=== PATIENT | male | born 1970 | race Caucasian/White ===

== ENCOUNTER → 2020-10-27 08:15 | Outpatient (CLI) | payer OTHER, SELFPAY ==
--- NOTE | ~2020-10-27 | XR_ITS ---
EXAMINATION: XR lumbar spine 2-3V EXAM DATE: 10/27/2020 08:40 INDICATION: Intervertebral disc disorders with radiculopathy, lumbar reg. TECHNIQUE: Lumber spine frontal, lateral, lateral L5-S1 projections for interpretation. Comparison is made to prior examination from 01/07/2011. FINDINGS: There is moderate disc disease L4-S1. Mild to moderate L1-L3 and mild at L3-4. There is mi ld upper lumbar, mild to moderate lower lumbar facet arthropathy. The vertebral bodies are aligned in the AP dimension. Moderate-sized bridging endplate osteophytes on the right side of L1-2. No spondyl olysis. Probable small amount of neural foraminal stenosis at L5-S1. Paraspinal soft tissue is unrema rkable. Compared to 2010, noticeable interval progression in spondylosis described above. IMPRESSION: 1. Mild to moderate lumbar spondylosis. 2. Evidence of L5-S1 neural foraminal stenosis. Reviewed, dictated and finalized at location B. CLERK
== END ==
DX: M51.16 Intervertebral disc disorders with radiculopathy, lumbar region (principal); M47.896 Other spondylosis, lumbar region
CPT/HCPCS: 72100

== ENCOUNTER 2022-04-02 15:10 | Outpatient (CLI) | payer OTHER, SELFPAY ==
--- NOTE | ~2022-04-02 | XR_ITS ---
EXAMINATION: XR wrist LT min 3V DATE: 04/02/2022 15:30 INDICATION: Left wrist pain. TECHNIQUE: 4 views of left wrist were obtained. COMPARISON: None. FINDINGS: Bone alignment is normal. No fracture. There is mild osteoarthritis of triscaphe joint and first carpometacarpal joint. There is moderate to severe osteoarthritis of scapholunate joint. IMPRESSION: 1. Polyarticular osteoarthritis. Reviewed, dictated and finalized at location A.
== END 2022-04-02 15:11 | disposition home or self-care (01) ==
PROVIDERS: PCP Physician Assistant; Visit Provider Physician Assistant
DX: M19.032 Primary osteoarthritis, left wrist (principal)
CPT/HCPCS: 73110

== ENCOUNTER 2023-02-04 10:29 | Emergency (ER) | payer OTHER, SELFPAY ==
[2023-02-04 10:45] VITALS: BP 146/105; PULSE 75; RESP 16; TEMP 37.1; O2SAT 100
--- NOTE | 2023-02-04 11:17 | ED.SKABFB ---
HPI - Skin/Abscess/Foreign Bdy General Chief complaint: Skin/Abscess/Foreign Body Stated complaint: Wound Check Time Seen by Provider: 02/04/23 11:17 Source: patient Mode of arrival: ambulatory Limitations: no limitations History of Present Illness HPI narrative: 52-year-old male presented for complaint of wound to the left hand index finger after injury 2 weeks ago. He states he cut himself with a box knife. States the site was flapped, and has been healing, but continues to have some swelling and site drains clear and yellow drainage. He has been applying Neosporin at night. Endorses some limited range of motion when making a fist due to the swelling. Site is tender only when touched. He denies redness, streaking, nausea, vomiting, fevers or chills. He did not seek treatment immediately following the injury. Related Data Allergies Allergy/AdvReac Type Severity Reaction Status Date / Time Penicillins Allergy Mild Swelling Verified 05/02/22 09:18 propoxyphene Allergy Unknown Facial Verified 05/02/22 09:18 swelling Bumble Bee Allergy Unknown Unknown Uncoded 05/02/22 09:18 Review of Systems Review of Systems: CONSTITUTIONAL: Denies body aches, fever, chills, or sweats. EYES: Denies visual changes, redness, or discharge. ENT: Denies rhinorrhea, congestion CARDIOVASCULAR: Denies chest pain, palpitations, or edema. RESPIRATORY: Denies cough or dyspnea. GASTROINTESTINAL: Denies abdominal pain, nausea, vomiting, or diarrhea. SKIN: Laceration to left index finger MUSCULOSKELETAL: Denies back pain, joint pain, or myalgia. NEUROLOGIC: Denies headache, numbness, tingling, or weakness. [facility] Past Medical History Medical History Alcohol use disorder Arthritis of wrist, left, degenerative Boil (~04/23/19) Flu vaccine need History of basal cell cancer Intermittent low back pain chronic Mild acid reflux Orthostatic hypotension Pneumonia (~01/21/13) Surgical History Surgical History History of back surgery (~2004) L5-S1 Family History Family History Father Diabetes mellitus Patient's father is Family history of cardiovascular disease Acute myocardial infarction Mother Patient's mother is Carcinoma of colon Grandparent Family history of Alzheimer's disease Social History Social History Smoking status: Former smoker Tobacco type: cigarettes Second hand tobacco smoke exposure: No Smoking end date: 08/19/97 Alcohol intake: current Drinks per week: 18 Substance use: current Substance use type: marijuana Gender identity (if verbalized by the patient): Male Comments At time of signature, I have reviewed and agree with nursing past medical, surgical, social and family history unless otherwise noted. Please see nursing chart for further information. There is no relevant family history pertinent to the presenting complaint Exam Narrative: GENERAL: Well-appearing HEAD: Normocephalic, atraumatic. EYES: conjunctivae clear, and EOMI. ENT: Mucous membranes moist. Oropharynx without edema, erythema or lesions. NECK: Supple. No lymphadenopathy CHEST: Clear to auscultation. HEART: Regular rate and rhythm. SKIN: Warm, dry. approx 0.5 linear scabbed laceration to left MCP joint, wound bed is dry with yellow center approx 1mm with mild surrounding erythema and mild swelling. Decreased ROM with flexion of finger at MCP due to swelling. No active drainage, fluctuance, streaking or induration. NEURO: Alert and oriented x3. Course Course Emergency Course: Patient is aware of diagnosis, understands and agrees to treatment plan. Anticipatory guidance given. Patient agrees to follow-up as directed and is aware of reasons to seek care at the
== END 2023-02-04 11:30 | disposition home or self-care (01) ==
PROVIDERS: Emergency Provider Nurse Practitioner Family; PCP Physician Assistant
DX: S61.412A Laceration without foreign body of left hand, initial encounter (principal); W45.8XXA Other foreign body or object entering through skin, initial encounter; Z87.891 Personal history of nicotine dependence; F12.90 Cannabis use, unspecified, uncomplicated; K21.9 Gastro-esophageal reflux disease without esophagitis; M19.032 Primary osteoarthritis, left wrist; Z85.828 Personal history of other malignant neoplasm of skin
CPT/HCPCS: 99213; G0463

== ENCOUNTER → 2023-04-19 11:24 | Outpatient (CLI) | payer OTHER, SELFPAY ==
--- NOTE | ~2023-04-19 | XR_ITS ---
Cervical Spine: AP, lateral, open-mouth views Clinical History: Pain Findings: There is mild reversal of the normal cervical lordosis. The vertebral bodies and posterior elements appear intact. There are mild degenerative disc changes at C3-C4, C5-C6, and C6-C7.. Pre-ve rtebral soft tissues are unremarkable. Impression: Mild degenerative disc changes, as above. Reviewed, dictated and finalized at location . Impression: Mild degenerative disc changes, as above.
== END ==
PROVIDERS: PCP Physician Assistant; Visit Provider Physician Assistant
DX: M50.30 Other cervical disc degeneration, unspecified cervical region (principal)
CPT/HCPCS: 72050

== ENCOUNTER 2024-06-10 06:42 | Day surgery (SDC) | payer OTHER, SELFPAY ==
[2024-05-07 08:24] VITALS: BMI 24.1
--- NOTE | 2024-06-10 06:52 | WPDANESEPPF ---
Anes - Initial Pre Proc Eval Procedure: Operation Date: 06/10/24 09:15 Proposed Procedures p Diagnostic Colonoscopy - Hasmukh Ramos MD Date/Time: 06/10/24 06:52 Surgeon: Hasmukh Ramos MD Pre Op Diagnosis: History of Polyps Patient Data Age: 54 Gender: M Height: 1.85 m Weight: 83.007 kg Allergies Allergy/AdvReac Type Severity Reaction Status Date / Time Penicillins Allergy Mild Swelling Verified 06/10/24 07:59 propoxyphene Allergy Unknown Facial Verified 06/10/24 07:59 swelling bee venom protein (honey bee) Allergy Other Verified 06/10/24 07:59 Home Medications Medication Instructions Recorded Confirmed Type tadalafil 20 mg tablet 20 mg PO DAILY PRN sexual activity 10/24/23 06/10/24 Rx #30 tabs Patient hx anesthesia problems: none Family hx anesthesia problems: none Results Review: All pre-operative results and documents have been reviewed as part of the pre-operative evaluation. [facility] Past Medical History Medical History Alcohol use disorder Arthritis of wrist, left, degenerative Boil (~04/23/19) Flu vaccine need History of basal cell cancer Intermittent low back pain chronic Mild acid reflux Orthostatic hypotension Pneumonia (~01/21/13) Surgical History Surgical History History of back surgery (~2004) L5-S1 Family History Family History Father Diabetes mellitus Patient's father is Family history of cardiovascular disease Acute myocardial infarction Mother Patient's mother is Carcinoma of colon Grandparent Family history of Alzheimer's disease Social History Social History (Updated 06/10/24 @ 08:27 by Erick Canas DO) Smoking packs per day: 0.5 Smoking cigarettes per day: 10.0 Smoking status: Current every day smoker Tobacco type: cigarettes Second hand tobacco smoke exposure: No Smoking end date: 08/19/97 Alcohol intake: current Alcohol use details: 4 beers/day Substance use: current Substance use type: marijuana Lack of Transportation: No Lack of Food: Never True Current Housing: I Have Housing Concerned About Future Housing: No Difficulty Paying Gas/Electric Bills: No Difficulty Paying for Meds: No Currently Unemployed: No Education: High School Diploma/GED Difficulty w/ Childcare or Family Care: No Gender identity (if verbalized by the patient): Male Jane - Inocencia Final PreProcedure Day of Procedure 06/10/24 06:52 Patient weight: normal Heart: regular rate and rhythm Lungs: clear to auscultation and normal air movement Airway: Mallampati scale class II Neurological: alert and oriented Last oral intake: >/= 8 hours ASA classification: III Emergent: no Anesthetic plan: proceed Anesthesia type and monitoring: general GIVS and standard monitoring Results Review: All pre-operative results and documents have been reviewed as part of the pre-operative evaluation. Informed Consent: The patient's anesthetic plan and its attendant risks and benefits were discussed with the patient/family/POA. Questions were solicited and answers provided to the satisfaction of the patient/family/POA.
[2024-06-10 08:00] VITALS: BP 145/97; PULSE 73; RESP 16; TEMP 37.5; O2SAT 100
[2024-06-10] MEDS: LACTATED RINGERS 1,000 ML 150 ML IV CONT (08:04)
--- NOTE | 2024-06-10 08:26 | PM.HPGS ---
History of Present Illness History of Present Illness Consent: Risks, benefits, and alternatives have been discussed and questions answered. Patient agrees to proceed with procedure. Chief complaint: History of Polyps, family history of colon cancer Narrative: Dinh Castro is a 54 year old male presents for screening colonoscopy. Patient's current weight , bowel movements, are normal. He denies abdominal pain. Patient has had no bleeding. History is significant that his mother had colon cancer. At the time of patient's previous colonoscopy in 2018 was found to have a benign adenomatous colon polyp. Review of Systems Review of Systems: All systems reviewed & are unremarkable except as noted in HPI and below PMFSH Past Medical History Medical History Alcohol use disorder Arthritis of wrist, left, degenerative Boil (~04/23/19) Flu vaccine need History of basal cell cancer Intermittent low back pain chronic Mild acid reflux Orthostatic hypotension Pneumonia (~01/21/13) Surgical History Surgical History History of back surgery (~2004) L5-S1 Family History Family History Father Diabetes mellitus Patient's father is Family history of cardiovascular disease Acute myocardial infarction Mother Patient's mother is Carcinoma of colon Grandparent Family history of Alzheimer's disease Social History Social History Smoking packs per day: 0.5 Smoking cigarettes per day: 10.0 Smoking status: Current every day smoker Tobacco type: cigarettes Second hand tobacco smoke exposure: No Smoking end date: 08/19/97 Alcohol intake: current Alcohol use details: 4 beers/day Substance use: current Substance use type: marijuana Lack of Transportation: No Lack of Food: Never True Current Housing: I Have Housing Concerned About Future Housing: No Difficulty Paying Gas/Electric Bills: No Difficulty Paying for Meds: No Currently Unemployed: No Education: High School Diploma/GED Difficulty w/ Childcare or Family Care: No Gender identity (if verbalized by the patient): Male Meds Home Medications and Allergies Home Medications Medication Instructions Recorded Confirmed Type tadalafil 20 mg tablet 20 mg PO DAILY PRN sexual activity 10/24/23 06/10/24 Rx #30 tabs Allergies Allergy/AdvReac Type Severity Reaction Status Date / Time Penicillins Allergy Mild Swelling Verified 06/10/24 07:59 propoxyphene Allergy Unknown Facial Verified 06/10/24 07:59 swelling bee venom protein (honey bee) Allergy Other Verified 06/10/24 07:59 Vital Signs Vital Signs - 24 hr 06/10/24 08:00 Temperature 99.5 F Pulse Rate 73 Respiratory Rate 16 Blood Pressure 145/97 H Pulse Oximetry 100 Oxygen Delivery Room Air Exam Narrative: Physical exam reveals patient to be alert. Vital signs stable. HEENT exam is unremarkable. Patient is anicteric. Lungs are clear to auscultation and to percussion is without murmur or extra sounds. Abdomen bowel sounds are present soft nontender with no organomegaly. Digital external rectal exam is normal. Assessment and Plan Assessment and plan (1) History of colon polyps: Code(s): Z86.010 - Personal history of colon polyps Status: Acute Assessment and Plan: Patient was found to have benign is colon polyp the time of previous colonoscopy in 2018. Plan for surveillance colonoscopy at 5 year intervals. (2) Family history of colon cancer in mother: Code(s): Z80.0 - Family history of malignant neoplasm of digestive organs Status: Acute Assessment and Plan: Patient's mother had colon cancer. Plan for surveillance colonoscopy at 5 year intervals.
[2024-06-10 09:31] VITALS: BP 102/80; PULSE 66; RESP 18; O2SAT 98
[2024-06-10 09:41] VITALS: BP 115/85; PULSE 69; RESP 18; O2SAT 100
[2024-06-10 09:51] VITALS: BP 130/88; PULSE 56; RESP 18; O2SAT 100
--- NOTE | 2024-06-10 12:02 | WPDANESPN ---
Anes - Prog Note Post-Op Date/Time: 06/10/24 12:02 Cardiovascular status: normal Respiratory status: normal Airway patency: baseline Mental status: baseline Post-Op hydration status: normal Vital Signs: Last Vital Signs Temp 37.5 C 06/10/24 08:00 Pulse 56 L 06/10/24 09:51 Resp 18 06/10/24 09:51 BP 130/88 06/10/24 09:51 Pulse Ox 100 06/10/24 09:51 O2 Del Method Room Air 06/10/24 09:51 Pain Score (VAS): 0 I/O: Intake & Output 06/09/24 06/10/24 06/10/24 23:59 07:59 15:59 Intake Total 700 Balance 700 Post-procedural complaints: none Patient Feedback: Patient satisfied with anesthetic care. Other Findings: Patient vital signs back to baseline. Patient denies nausea and vomiting. Patient's pain under control. Patient OK for discharge.
== END 2024-06-10 10:09 | disposition home or self-care (01) ==
PROVIDERS: Visit Provider Internal Medicine Gastroenterology
PROC: 0DJD8ZZ Inspection of Lower Intestinal Tract, Via Natural or Artificial Opening Endoscopic (ICD-10-PCS; CPT 45378; principal; 2024-06-10 09:15)
DX: Z86.0100 Personal history of colon polyps, unspecified (principal); Z80.0 Family history of malignant neoplasm of digestive organs; D12.5 Benign neoplasm of sigmoid colon; K57.30 Diverticulosis of large intestine without perforation or abscess without bleeding; K64.8 Other hemorrhoids
CPT/HCPCS: 45385

== ENCOUNTER 2024-06-10 07:00 | Outpatient (NON) | payer OTHER, SELFPAY | END 2024-06-10 07:01 | disposition home or self-care (01) | PROVIDERS: Visit Provider Internal Medicine Gastroenterology | DX: Z12.11 Encounter for screening for malignant neoplasm of colon (principal); Z80.0 Family history of malignant neoplasm of digestive organs | CPT/HCPCS: 88305 ==